=== PATIENT | female | born 1965 | race Caucasian/White ===

== ENCOUNTER 2022-12-26 16:25 | Emergency (ER) | payer BC ==
[~2022-12-26 16:25] MED LIST: Iopamidol-370 76% 500 ML MDV (1 ML CHARGE) ONE
[2022-12-26 17:12] LABS: #Eosinphils 0.2 thou/uL (0.0-0.7); #Monocytes 0.5 thou/uL (0.11-0.59); #Neutrophils 6.3 thou/uL (1.40-6.50); %Basophils 0.3 % (0.0-1.0); %Eosinophils 1.8 % (0.0-10.0); %Lymphocytes 25.1 % (21.0-51.0); %Monocytes 5.5 % (0.0-10.0); %Neutrophils 66.5 % (42.0-75.0); Hematocrit 45.5 % (36.0-47.0); Hemoglobin 14.5 g/dL (12.0-16.0); Mean Corpuscular HGB CONC 31.9 g/dL (32.0-36.0); Mean Corpuscular Hemoglobin 28.6 pg (27.0-31.0); Mean Corpuscular Volume 89.7 fl (78.0-98.0); Mean Platelet Volume 9.5 fL (7.4-10.4); Platelet Count 309 10x3/uL (130-400); RBC Distribution Width 13.9 % (11.5-14.5); Red Blood Cell (RBC) Count 5.07 mill/uL (4.20-5.40); White Blood Cell (WBC) Count 9.4 10x3/uL (4.8-10.8)
[2022-12-26 17:34] LABS: Troponin I Less than 0.010 ng/mL (< 0.028)
[2022-12-26 17:38] LABS: ALT (SGPT) 24 U/L (8-55); AST (SGOT) 19 U/L (5-34); Albumin 4.7 g/dL (3.5-5.0); Alkaline Phosphatase 82 U/L (40-110); Anion Gap 16 mmol/L (10-20); BUN (Urea Nitrogen) 15 mg/dL (9.8-20.1); Bilirubin, Total 0.2 mg/dL (0.2-1.2); Calc. Creatinine Clearance 0 mL/min (70-130); Calcium 10.5 mg/dL (7.8-10.44); Carbon Dioxide 23 mmol/L (22-29); Chloride 105 mmol/L (98-107); Estimated GFR 78; Globulin 3.3 g/dL (2.4-3.5); Glucose 179 mg/dL (70-105); Lipase 38 U/L (8-78); Sodium 140 mmol/L (136-145)
== END 2022-12-26 21:32 | disposition home or self-care (01) ==
LOC: ERS 16:25
DX: I26.09 Other pulmonary embolism with acute cor pulmonale (principal); E11.9 Type 2 diabetes mellitus without complications; E78.5 Hyperlipidemia, unspecified; I25.10 Atherosclerotic heart disease of native coronary artery without angina pectoris; K21.9 Gastro-esophageal reflux disease without esophagitis; Z79.82 Long term (current) use of aspirin; Z79.84 Long term (current) use of oral hypoglycemic drugs
CPT/HCPCS: 36415; 71045; 71275; 80053; 83605; 83690; 84484; 85025; 85379; 93005; 96360; Q9967

== ENCOUNTER 2023-01-06 07:58 | Outpatient (CLI) | payer BC | END 2023-01-06 07:59 | disposition home or self-care (01) | LOC: BICMAMMO 07:58 | PROVIDERS: ATTEND Internal Medicine | DX: Z12.31 Encounter for screening mammogram for malignant neoplasm of breast (principal); Z13.820 Encounter for screening for osteoporosis; M85.852 Other specified disorders of bone density and structure, left thigh; T38.6X5A Adverse effect of antigonadotrophins, antiestrogens, antiandrogens, not elsewhere classified, initial encounter; Z80.3 Family history of malignant neoplasm of breast; Z85.3 Personal history of malignant neoplasm of breast; Z91.89 Other specified personal risk factors, not elsewhere classified | CPT/HCPCS: 77063; 77067; 77080 ==

== ENCOUNTER 2023-03-27 11:31 | Emergency (ER) | payer BC ==
[2023-03-27 11:58] LABS: #Eosinphils 0.1 thou/uL (0.0-0.7); #Monocytes 0.5 thou/uL (0.11-0.59); #Neutrophils 6.3 thou/uL (1.40-6.50); %Basophils 0.3 % (0.0-1.0); %Eosinophils 1.4 % (0.0-10.0); %Lymphocytes 27.4 % (21.0-51.0); %Monocytes 5.4 % (0.0-10.0); %Neutrophils 64.6 % (42.0-75.0); Hematocrit 45.3 % (36.0-47.0); Hemoglobin 14.8 g/dL (12.0-16.0); Mean Corpuscular HGB CONC 32.7 g/dL (32.0-36.0); Mean Corpuscular Hemoglobin 28.8 pg (27.0-31.0); Mean Corpuscular Volume 88.1 fl (78.0-98.0); Mean Platelet Volume 9.7 fL (7.4-10.4); Platelet Count 310 10x3/uL (130-400); RBC Distribution Width 14.4 % (11.5-14.5); Red Blood Cell (RBC) Count 5.14 mill/uL (4.20-5.40); White Blood Cell (WBC) Count 9.7 10x3/uL (4.8-10.8)
[2023-03-27 12:23] LABS: Troponin I Less than 0.010 ng/mL (< 0.028)
[2023-03-27 13:22] LABS: Albumin 4.5 g/dL (3.5-5.0)
[2023-03-27 13:24] LABS: Calcium 10.3 mg/dL (7.8-10.44); Chloride 105 mmol/L (98-107); Potassium 4.1 mmol/L (3.5-5.1); Sodium 143 mmol/L (136-145)
[2023-03-27 13:25] LABS: Globulin 2.5 g/dL (2.4-3.5); Glucose 133 mg/dL (70-105)
[2023-03-27 13:26] LABS: Anion Gap 13 mmol/L (10-20); Carbon Dioxide 29 mmol/L (22-29)
[2023-03-27 13:27] LABS: Bilirubin, Total 0.3 mg/dL (0.2-1.2)
[2023-03-27 13:28] LABS: Alkaline Phosphatase 69 U/L (40-110); Calc. Creatinine Clearance 0 mL/min (70-130); Estimated GFR 82
[2023-03-27 13:29] LABS: BUN (Urea Nitrogen) 14 mg/dL (9.8-20.1)
[2023-03-27 13:30] LABS: AST (SGOT) 14 U/L (5-34)
[2023-03-27 13:31] LABS: ALT (SGPT) 18 U/L (8-55); Lipase 33 U/L (8-78)
== END 2023-03-27 14:40 | disposition home or self-care (01) ==
LOC: ERS 11:31
DX: R07.9 Chest pain, unspecified (principal); E11.9 Type 2 diabetes mellitus without complications; E78.5 Hyperlipidemia, unspecified; Z79.84 Long term (current) use of oral hypoglycemic drugs; Z79.899 Other long term (current) drug therapy; Z79.82 Long term (current) use of aspirin; Z79.01 Long term (current) use of anticoagulants
CPT/HCPCS: 36415; 71045; 80053; 83690; 84484; 85025; 93005

== ENCOUNTER 2023-05-17 14:18 | Emergency (ER) | payer OTHER, BC | END 2023-05-17 17:31 | disposition home or self-care (01) | LOC: ERS 14:18 | DX: S09.90XA Unspecified injury of head, initial encounter (principal); S00.03XA Contusion of scalp, initial encounter; E11.9 Type 2 diabetes mellitus without complications; E78.5 Hyperlipidemia, unspecified; I25.10 Atherosclerotic heart disease of native coronary artery without angina pectoris; K21.9 Gastro-esophageal reflux disease without esophagitis; Z79.84 Long term (current) use of oral hypoglycemic drugs; Z79.01 Long term (current) use of anticoagulants; Z79.82 Long term (current) use of aspirin; W01.198A Fall on same level from slipping, tripping and stumbling with subsequent striking against other object, initial encounter | CPT/HCPCS: 70450 ==

== ENCOUNTER 2023-06-04 07:16 | Outpatient (CLI) | payer BC ==
[2023-06-04] MEDS ORDERED: Iopamidol-370 76% 500 ML MDV (1 ML CHARGE) ONE (13:20)
== END 2023-06-04 07:17 | disposition home or self-care (01) ==
LOC: BICCT 07:16
PROVIDERS: ATTEND Family Medicine
DX: D32.9 Benign neoplasm of meninges, unspecified (principal)
CPT/HCPCS: 70470; 82565; Q9967

== ENCOUNTER 2024-01-08 08:01 | Outpatient (CLI) | payer BC | END 2024-01-08 08:02 | disposition home or self-care (01) | LOC: BICMAMMO 08:01 | PROVIDERS: ATTEND Internal Medicine | DX: Z13.820 Encounter for screening for osteoporosis (principal) | CPT/HCPCS: 77080 ==

== ENCOUNTER 2024-04-26 12:37 | Outpatient (CLI) | payer BC | END 2024-04-26 12:38 | disposition home or self-care (01) | LOC: BICMAMMO 12:37 | PROVIDERS: ATTEND Internal Medicine | DX: Z12.31 Encounter for screening mammogram for malignant neoplasm of breast (principal); Z80.3 Family history of malignant neoplasm of breast; Z90.12 Acquired absence of left breast and nipple; Z98.82 Breast implant status | CPT/HCPCS: 77063; 77067 ==

== ENCOUNTER 2024-05-06 14:01 | Emergency (ER) | payer BC ==
[2024-05-06 14:32] LABS: #Basophils 0.04 10x3/uL (0.0-0.2); %Basophils 0.4 % (0.0-1.0); %Lymphocytes 27.7 % (21.0-51.0); %Monocytes 6.2 % (0.0-10.0); %Neutrophils 63.1 % (42.0-75.0); Hematocrit 40.8 % (36.0-47.0); Hemoglobin 13.6 g/dL (12.0-16.0); Mean Corpuscular HGB CONC 33.3 g/dL (32.0-36.0); Mean Corpuscular Hemoglobin 28.2 pg (27.0-31.0); Mean Corpuscular Volume 84.5 fL (78.0-98.0); Mean Platelet Volume 9.3 fL (7.4-10.4); Platelet Count 331 10x3/uL (130-400); RBC Distribution Width 14.4 % (11.5-14.5); Red Blood Cell (RBC) Count 4.83 mill/uL (4.20-5.40)
[2024-05-06 14:48] LABS: ALT (SGPT) 18 U/L (8-55); AST (SGOT) 15 U/L (5-34); Albumin 3.9 g/dL (3.5-5.0); Alkaline Phosphatase 69 U/L (40-110); Anion Gap 18 mmol/L (10-20); BUN (Urea Nitrogen) 17 mg/dL (9.8-20.1); Bilirubin, Total 0.2 mg/dL (0.2-1.2); Calc. Creatinine Clearance 0 mL/min (70-130); Calcium 9.9 mg/dL (7.8-10.44); Carbon Dioxide 24 mmol/L (22-29); Chloride 103 mmol/L (98-107); Estimated GFR 93; Globulin 3.8 g/dL (2.4-3.5); Glucose 161 mg/dL (70-105); Potassium 4.2 mmol/L (3.5-5.1); Protein, Total 7.7 g/dL (6.0-8.3); Sodium 141 mmol/L (136-145)
[2024-05-06 14:54] LABS: Troponin I Less than 0.010 ng/mL (< 0.028)
== END 2024-05-06 15:35 | disposition home or self-care (01) ==
LOC: ERS 14:01
DX: R07.9 Chest pain, unspecified (principal); E11.9 Type 2 diabetes mellitus without complications; E78.5 Hyperlipidemia, unspecified; Z79.84 Long term (current) use of oral hypoglycemic drugs; Z79.82 Long term (current) use of aspirin; Z79.4 Long term (current) use of insulin
CPT/HCPCS: 71275; 80053; 84484; 85025; 93005

== ENCOUNTER 2025-01-26 08:14 | Emergency (ER) | payer OTHER ==
[2025-01-26 09:01] LABS: #Basophils 0.03 10x3/uL (0.0-0.2); #Eosinophils 0.17 10x3/uL (0.0-0.7); #Monocytes 0.45 10x3/uL (0.11-0.59); #Neutrophils 5.07 10x3/uL (1.40-6.50); %Basophils 0.4 % (0.0-1.0); %Eosinophils 2.2 % (0.0-10.0); %Lymphocytes 25.6 % (21.0-51.0); %Monocytes 5.8 % (0.0-10.0); %Neutrophils 65.4 % (42.0-75.0); Hematocrit 42.6 % (36.0-47.0); Hemoglobin 13.4 g/dL (12.0-16.0); Mean Corpuscular Hemoglobin 26.9 pg (27.0-31.0); Mean Corpuscular Volume 85.4 fL (78.0-98.0); Platelet Count 268 10x3/uL (130-400); Red Blood Cell (RBC) Count 4.99 mill/uL (4.20-5.40); White Blood Cell (WBC) Count 7.76 10x3/uL (4.8-10.8)
[2025-01-26 09:17] LABS: ALT (SGPT) 24 U/L (Less than 34); AST (SGOT) 23 U/L (11-34); Albumin 4.0 g/dL (3.1-4.5); Alkaline Phosphatase 83 U/L (40-110); Anion Gap 17 mmol/L (10-20); BUN (Urea Nitrogen) 17 mg/dL (9.8-20.1); Bilirubin, Total 0.3 mg/dL (0.3-1.2); Calc. Creatinine Clearance 0 mL/min (70-130); Calcium 9.6 mg/dL (7.8-10.44); Carbon Dioxide 26 mmol/L (23-31); Chloride 100 mmol/L (98-107); Globulin 3.3 g/dL (2.4-3.5); Glucose 301 mg/dL (80-115); Potassium 4.2 mmol/L (3.5-5.1); Sodium 139 mmol/L (136-145)
[2025-01-26] MEDS ORDERED: Iopamidol-370 76% 500 ML MDV (1 ML CHARGE) ONE (15:16)
== END 2025-01-26 12:00 | disposition home or self-care (01) ==
LOC: ERS 08:14
DX: R07.9 Chest pain, unspecified (principal); E11.9 Type 2 diabetes mellitus without complications; E78.5 Hyperlipidemia, unspecified; I25.10 Atherosclerotic heart disease of native coronary artery without angina pectoris; I25.2 Old myocardial infarction; Z79.84 Long term (current) use of oral hypoglycemic drugs; Z79.82 Long term (current) use of aspirin
CPT/HCPCS: 71045; 71275; 80053; 83880; 84484; 85025; 85379; 93005; Q9967

== ENCOUNTER 2025-04-27 08:51 | Outpatient (CLI) | payer OTHER | END 2025-04-27 08:52 | disposition home or self-care (01) | LOC: BICMAMMO 08:51 | PROVIDERS: ATTEND Internal Medicine | DX: Z12.31 Encounter for screening mammogram for malignant neoplasm of breast (principal); M81.8 Other osteoporosis without current pathological fracture; I26.99 Other pulmonary embolism without acute cor pulmonale; R06.02 Shortness of breath; T38.6X5A Adverse effect of antigonadotrophins, antiestrogens, antiandrogens, not elsewhere classified, initial encounter; M85.852 Other specified disorders of bone density and structure, left thigh; Z80.3 Family history of malignant neoplasm of breast; Z85.3 Personal history of malignant neoplasm of breast; Z98.890 Other specified postprocedural states; Z98.82 Breast implant status; Z85.42 Personal history of malignant neoplasm of other parts of uterus | CPT/HCPCS: 77063; 77067; 77080 ==

== ENCOUNTER 2025-05-17 07:51 | Outpatient (CLI) | payer OTHER | END 2025-05-17 07:52 | disposition home or self-care (01) | LOC: SCSMRI 07:51 | PROVIDERS: ATTEND Neurological Surgery | DX: D32.9 Benign neoplasm of meninges, unspecified (principal); I67.82 Cerebral ischemia; I73.9 Peripheral vascular disease, unspecified | CPT/HCPCS: 70553; 76376 ==